=== PATIENT | female | born 1960 | race Caucasian/White ===

== ENCOUNTER 2020-10-24 08:55 | Outpatient (REF) | payer OTHER, SELFPAY ==
[2020-10-24 11:05] LABS: MANUAL DIFF FLAG NO
[2020-10-24 11:16] LABS: Basophils Percent Auto 0.4 % (0-2); Eosinophils Percent Auto 0.8 % (0-4); Hematocrit 39.3 % (37-47); Hemoglobin 13.2 g/dl (12.0-16.0); Imm Gran Abs Auto 0.01 X10*3/uL (0.00-0.03); Imm Gran Pct Auto 0.2 % (0.0-0.4); Lymphocytes Absolute Auto 1.9 X10*3/uL (1.2-4.9); Lymphocytes Percent Auto 38.4 % (20-40); Mean Corpuscular HGB Conc 33.6 g/dl (31.0-35.0); Mean Corpuscular Volume 98.3 fL (80-98); Mean Platelet Volume 9.7 fL (9.4-12.3); Monocytes Absolute Auto 0.5 X10*3/uL (0.1-1.2); Neutrophils Absolute Auto 2.4 X10*3/uL (2.0-8.3); Neutrophils Percent Auto 50.2 % (45-73); Platelet Count 224 X10*3/uL (160-400); Red Cell Distribution Width 12.8 % (11.0-16.0); White Blood Count 4.8 X10*3/uL (4.8-10.8)
[2020-10-24 11:33] LABS: Alanine Aminotransferase 26 U/L (0-31); Albumin Level 4.2 g/dL (3.5-5.0); Alkaline Phosphatase 51 U/L (39-117); Anion Gap 12 (12-20); Aspartate Amino Transferase 20 U/L (5-31); Bilirubin Total 0.5 mg/dL (0.0-1.0); Blood Urea Nitrogen 15 mg/dL (9-16); Calcium 9.1 mg/dL (8.4-10.2); Carbon Dioxide 29 mmol/L (22-29); Chloride 101 mmol/L (96-108); Cholesterol 247 mg/dL; Estimated Glomerular Filt Rate > 60; Glucose Fasting 99 mg/dL (60-99); HDL Cholesterol 110 mg/dL; LDL Cholesterol Calculated 126 mg/dl; Potassium 4.1 mmol/L (3.3-5.1); Sodium 138 mmol/L (135-145); Total Protein 6.8 g/dL (6.5-8.0); Triglycerides 58 mg/dL
[2020-10-24 11:47] LABS: ~HepC Num1 0.06 S/CO (0.00-0.79); ~Hepatitis C Antibody Nonreactive (Nonreactive)
[2020-10-24 11:49] LABS: Thyroid Stimulating Hormone 1.24 uIU/mL (0.32-4.0); Vitamin D 25-OH Total 27.6 ng/mL (>30)
== END 2020-10-24 08:56 | disposition home or self-care (01) ==
LOC: HO.MANLDS 08:55
PROVIDERS: PCP Internal Medicine; Visit Provider Internal Medicine
DX: Z00.00 Encounter for general adult medical examination without abnormal findings (principal)
CPT/HCPCS: 36415; 80053; 80061; 82306; 84443; 85025; 86803

== ENCOUNTER 2021-11-19 08:31 | Outpatient (REF) | payer OTHER, SELFPAY ==
[2021-11-19 11:34] LABS: MANUAL DIFF FLAG NO
[2021-11-19 11:58] LABS: Basophils Percent Auto 0.4 % (0-2); Eosinophils Absolute Auto 0.2 X10*3/uL (0.0-0.4); Eosinophils Percent Auto 4.3 % (0-4); Hematocrit 39.8 % (37.0-47.0); Hemoglobin 13.4 g/dl (12.0-16.0); Imm Gran Abs Auto 0.02 X10*3/uL (0.00-0.03); Imm Gran Pct Auto 0.4 % (0.0-0.4); Lymphocytes Absolute Auto 2.2 X10*3/uL (1.2-4.9); Lymphocytes Percent Auto 40.7 % (20-40); Mean Corpuscular HGB Conc 33.7 g/dl (31.0-35.0); Mean Corpuscular Hemoglobin 33.3 pg (27.0-33.0); Mean Corpuscular Volume 98.8 fL (80.0-98.0); Mean Platelet Volume 10.4 fL (9.4-12.3); Monocytes Absolute Auto 0.5 X10*3/uL (0.1-1.2); Monocytes Percent Auto 9.9 % (2-11); Neutrophils Absolute Auto 2.4 x10*3/uL (2.0-8.3); Neutrophils Percent Auto 44.3 % (45-73); Platelet Count 227 X10*3/uL (160-400); Red Blood Count 4.03 X10*6/uL (4.20-5.50); Red Cell Distribution Width 12.4 % (11.0-16.0); White Blood Count 5.4 X10*3/uL (4.8-10.8)
[2021-11-19 12:16] LABS: Alanine Aminotransferase 22 U/L (0-31); Albumin Level 4.2 g/dL (3.5-5.0); Alkaline Phosphatase 56 U/L (39-117); Anion Gap 12 (12-20); Aspartate Amino Transferase 22 U/L (5-31); Bilirubin Total 0.4 mg/dL (0.0-1.0); Blood Urea Nitrogen 20 mg/dL (9-16); Calcium 8.9 mg/dL (8.4-10.2); Carbon Dioxide 26 mmol/L (22-29); Chloride 103 mmol/L (96-108); Cholesterol 237 mg/dL; Estimated Glomerular Filt Rate > 60; Glucose Random 99 mg/dL (60-115); HDL Cholesterol 107 mg/dL; LDL Cholesterol Calculated 118 mg/dl; Potassium 4.4 mmol/L (3.3-5.1); Sodium 137 mmol/L (135-145); Total Protein 6.9 g/dL (6.5-8.0); Triglycerides 60 mg/dL
[2021-11-19 12:31] LABS: Thyroid Stimulating Hormone 1.51 uIU/mL (0.32-4.0); Vitamin D 25-OH Total 25.4 ng/mL (>30)
== END 2021-11-19 08:32 | disposition home or self-care (01) ==
LOC: HO.MANLDS 08:31
PROVIDERS: Visit Provider Internal Medicine
DX: Z00.00 Encounter for general adult medical examination without abnormal findings (principal)
CPT/HCPCS: 36415; 80053; 80061; 82306; 84443; 85025

== ENCOUNTER 2022-09-03 08:41 | Outpatient (REF) | payer OTHER, SELFPAY ==
[2022-09-03 11:01] LABS: MANUAL DIFF FLAG NO
[2022-09-03 11:11] LABS: Basophils Percent Auto 0.4 % (0-2); Eosinophils Absolute Auto 0.1 X10*3/uL (0.0-0.4); Eosinophils Percent Auto 1.8 % (0-4); Hematocrit 41.7 % (37.0-47.0); Hemoglobin 13.9 g/dl (12.0-16.0); INTERNATIONAL NORM RATIO 0.8 (0.9-1.1); Lymphocytes Absolute Auto 2.3 X10*3/uL (1.2-4.9); Lymphocytes Percent Auto 49.7 % (20-40); Mean Corpuscular HGB Conc 33.3 g/dl (31.0-35.0); Mean Corpuscular Hemoglobin 32.8 pg (27.0-33.0); Mean Corpuscular Volume 98.3 fL (80.0-98.0); Monocytes Absolute Auto 0.5 X10*3/uL (0.1-1.2); Monocytes Percent Auto 10.4 % (2-11); Neutrophils Absolute Auto 1.7 x10*3/uL (2.0-8.3); Neutrophils Percent Auto 37.7 % (45-73); Platelet Count 225 X10*3/uL (160-400); Prothrombin Time 9.3 SEC (10.0-13.1); Red Blood Count 4.24 X10*6/uL (4.20-5.50); Red Cell Distribution Width 12.2 % (11.0-16.0); White Blood Count 4.5 X10*3/uL (4.8-10.8)
[2022-09-03 11:14] LABS: Partial Thromboplastin Time 27.9 SEC (26.0-36.4)
[2022-09-03 11:18] LABS: C Reactive Protein < 0.10 mg/dL (< or = 0.50); Rheumatoid Factor < 13.0 IU/mL (<15.0)
[2022-09-03 11:56] LABS: Erythrocyte Sedimentation Rate 5 MM/HR (0-20)
[2022-09-07 16:54] LABS: Angiotensin Converting Enzyme 24 U/L (9-67)
[2022-09-09 15:18] LABS: Anti Nuclear Antibody Screen POSITIVE (NEGATIVE)
== END 2022-09-03 08:42 | disposition home or self-care (01) ==
LOC: HO.MANLDS 08:41
PROVIDERS: Visit Provider Physician Assistant
DX: H11.31 Conjunctival hemorrhage, right eye (principal); H20.011 Primary iridocyclitis, right eye
CPT/HCPCS: 36415; 82164; 85025; 85610; 85652; 85730; 86038; 86039; 86140; 86431

== ENCOUNTER 2023-11-02 14:24 | Outpatient (REF) | payer OTHER, SELFPAY ==
--- NOTE | ~2023-11-02 | MM_ITS ---
EXAMINATION: MM DIAGNOSTIC DIGITAL MAMMOGRAPHY, RIGHT CLINICAL INFORMATION: Evaluate subtle calcifications central right breast upper slightly inner aspect mid to posterior one third. COMPARISON: Mammography: 10/12/2023,10/08/2022, 10/07/2021 ([facility]). TECHNIQUE: Digital mammography is performed in the following views: Spot magnification 2-D views right CC and ML projections. FINDINGS: The breasts are heterogeneously dense, which may obscure small masses (ACR BI-RADS breast composition Category c). A few punctate loosely grouped calcifications, extremely subtle, are seen in the upper slightly medial aspect of the right breast, mid to posterior one third. These are benign. There are no branching, linear, pleomorphic forms, and there is no suspicious distribution. There are also benign vascular calcifications present. No additional suspicious abnormalities in the right breast. MM/MM added views RT IMPRESSION: No suspicious or concerning calcifications identified. Benign findings. Recommend the patient return to routine screening to include both breasts. ASSESSMENT: BI-RADS BI-RADS 2 - Benign Findings RECOMMENDATION: 1 year F/U Findings discussed with the patient by the technologist. This patient's information was entered into a reminder system with a target due date for their next mammogram.
== END 2023-11-02 14:25 | disposition home or self-care (01) ==
LOC: HO.MAMMO 14:24
PROVIDERS: PCP Internal Medicine; Visit Provider Internal Medicine
DX: N64.89 Other specified disorders of breast (principal)
CPT/HCPCS: 77065

== ENCOUNTER → 2023-11-02 14:30 | Outpatient (BNV) | payer OTHER, SELFPAY | PROVIDERS: PCP Internal Medicine; Visit Provider Radiology Diagnostic Radiology | DX: R92.1 Mammographic calcification found on diagnostic imaging of breast (principal) | CPT/HCPCS: 77065 ==

== ENCOUNTER 2023-12-15 13:34 | Outpatient (REF) | payer OTHER, SELFPAY ==
--- NOTE | ~2023-12-15 | XR_ITS ---
EXAMINATION: XR PELVIS WITH BILATERAL HIPS XR HAND, BILATERAL CLINICAL INDICATION: Pain hands, pain right hip. COMPARISON: None available. TECHNIQUE: 3 views of each hand. AP view of the pelvis and 2 views of each hip. FINDINGS: PELVIS AND BILATERAL HIPS: Diffuse demineralization. Degenerative changes in the imaged lower lumbar spine. Mild degenerative changes in the left sacroiliac joint. There is possible fusion of the right sacroiliac joint which could be evaluated with dedicated imaging. Multiple amorphous calcifications adjacent to the right greater trochanter. Mild narrowing of the right hip joint with degenerative changes. Mild narrowing of the left hip joint with degenerative changes. RIGHT HAND: Diffuse demineralization. Ulnar minus variance. Moderate degenerative changes in the 1st carpometacarpal joint. Mild degenerative changes in the IP joint of the thumb. Advanced degenerative changes in the DIP joint of the second digit. LEFT HAND: Diffuse demineralization. Ulnar minus variance. Moderate degenerative changes in the 1st carpometacarpal joint. Mild degenerative changes in the IP joint of the thumb. [id number] degenerative changes in the left second digit DIP joint. XR/XR hand RT min 3V IMPRESSION: 1. Mild degenerative changes bilateral hip joints. 2. Possible fusion of the right sacroiliac joint. 3. 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 This study was presented today December 23, 2023 for interpretation. Stat results provided at this time as requested by referring provider.
--- NOTE | ~2023-12-15 | XR_ITS ---
EXAMINATION: XR PELVIS WITH BILATERAL HIPS XR HAND, BILATERAL CLINICAL INDICATION: Pain hands, pain right hip. COMPARISON: None available. TECHNIQUE: 3 views of each hand. AP view of the pelvis and 2 views of each hip. FINDINGS: PELVIS AND BILATERAL HIPS: Diffuse demineralization. Degenerative changes in the imaged lower lumbar spine. Mild degenerative changes in the left sacroiliac joint. There is possible fusion of the right sacroiliac joint which could be evaluated with dedicated imaging. Multiple amorphous calcifications adjacent to the right greater trochanter. Mild narrowing of the right hip joint with degenerative changes. Mild narrowing of the left hip joint with degenerative changes. RIGHT HAND: Diffuse demineralization. Ulnar minus variance. Moderate degenerative changes in the 1st carpometacarpal joint. Mild degenerative changes in the IP joint of the thumb. Advanced degenerative changes in the DIP joint of the second digit. LEFT HAND: Diffuse demineralization. Ulnar minus variance. Moderate degenerative changes in the 1st carpometacarpal joint. Mild degenerative changes in the IP joint of the thumb. [id number] degenerative changes in the left second digit DIP joint. XR/XR hand LT min 3V IMPRESSION: 1. Mild degenerative changes bilateral hip joints. 2. Possible fusion of the right sacroiliac joint. 3. 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 This study was presented today December 23, 2023 for interpretation. Stat results provided at this time as requested by referring provider.
--- NOTE | ~2023-12-15 | XR_ITS ---
EXAMINATION: XR PELVIS WITH BILATERAL HIPS XR HAND, BILATERAL CLINICAL INDICATION: Pain hands, pain right hip. COMPARISON: None available. TECHNIQUE: 3 views of each hand. AP view of the pelvis and 2 views of each hip. FINDINGS: PELVIS AND BILATERAL HIPS: Diffuse demineralization. Degenerative changes in the imaged lower lumbar spine. Mild degenerative changes in the left sacroiliac joint. There is possible fusion of the right sacroiliac joint which could be evaluated with dedicated imaging. Multiple amorphous calcifications adjacent to the right greater trochanter. Mild narrowing of the right hip joint with degenerative changes. Mild narrowing of the left hip joint with degenerative changes. RIGHT HAND: Diffuse demineralization. Ulnar minus variance. Moderate degenerative changes in the 1st carpometacarpal joint. Mild degenerative changes in the IP joint of the thumb. Advanced degenerative changes in the DIP joint of the second digit. LEFT HAND: Diffuse demineralization. Ulnar minus variance. Moderate degenerative changes in the 1st carpometacarpal joint. Mild degenerative changes in the IP joint of the thumb. [id number] degenerative changes in the left second digit DIP joint. XR/XR hip BI w [id number] IMPRESSION: 1. Mild degenerative changes bilateral hip joints. 2. Possible fusion of the right sacroiliac joint. 3. 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 This study was presented today December 23, 2023 for interpretation. Stat results provided at this time as requested by referring provider.
== END 2023-12-15 13:35 | disposition home or self-care (01) ==
LOC: HO.XRAY 13:34
PROVIDERS: PCP Internal Medicine; Visit Provider Internal Medicine
DX: M25.551 Pain in right hip (principal); M79.641 Pain in right hand; M79.642 Pain in left hand
CPT/HCPCS: 73130; 73521